=== PATIENT | female | born 1980 | race Caucasian/White ===

== ENCOUNTER 2017-05-05 22:32 | Emergency (ER) | payer OTHER ==
[~2017-05-05] VITALS: Ht 162.6 cm; Wt 73.8 kg
[2017-05-05 22:42] VITALS: TEMP 36.7; Ht 162.6 cm; Wt 73.8 kg
[2017-05-05] MEDS ORDERED: SODIUM CHLORIDE 0.9% 1000ML 1,000 ML IV STA ×2 (23:19)
[2017-05-05] MEDS ORDERED: ONDANSETRON INJ 2 MG/ML 2 ML VIAL IV STA (23:19)
[2017-05-05] MEDS ORDERED: MoRPHine SULFATE 4 MG/ML 1 ML CARP\\VIAL IV STA (23:19)
[2017-05-05] MEDS ORDERED: CETI10TA84 PO (23:34)
[2017-05-05 23:40] VITALS: O2SAT 98
[2017-05-06 00:01] LABS: URINE APPEARANCE CLOUDY (CLEAR); URINE BILIRUBIN NEG (NEG); URINE COLOR ORANGE; URINE NITRITE NEG (NEG); URINE SPECIFIC GRAVITY 1.038 (1.000-1.030); UROBILINOGEN NEG (NEG); ZZUR CULT IF INDIC CLEAN CATCH NO
[2017-05-06 00:03] LABS: BASO % 0.5 %; BASO ABS # 0.05 K/uL (0-0.2); COMPLETE YES; EOS % 5.6 %; HEMATOCRIT 36.8 % (37-47); IG% 0.1 %; LYMPH % 27.4 %; LYMPH ABS # 2.57 K/uL (1.2-3.4); MEAN CELL VOLUME 88.5 fL (80-100); MEAN CORPUSCULAR HEMOGLOBIN 28.8 pg (25-34); MEAN CORPUSCULAR HGB CONC 32.6 g/dl (32-36); MEAN PLATELET VOLUME 9.6 fL (7.4-10.4); MONO % 8.1 %; NEUT % 58.3 %; PLATELET COUNT 327 K/uL (130-400); RED BLOOD COUNT 4.16 M/uL (4.2-5.4); WHITE BLOOD COUNT 9.39 K/uL (4.8-10.8)
[2017-05-06 00:07] LABS: MANUAL MICROSCOPIC REQUIRED? NO; REVIEW REQ? NO
[2017-05-06 00:08] LABS: INR 0.9 (0.9-1.1); PARTIAL THROMBOPLASTIN RATIO 1.1; PROTHROMBIN TIME (PATIENT) 10.1 SECONDS (9.0-12.0)
[2017-05-06 00:27] LABS: BUN/CREATININE RATIO 10.6 (10-20); CALCIUM 8.7 mg/dl (8.5-10.1); CREATININE 1.2 mg/dl (0.60-1.20); POTASSIUM 4.1 mmol/L (3.5-5.1)
[2017-05-06 00:29] LABS: ALB/GLOB RATIO 1.1 (0.9-2)
[2017-05-06] MEDS ORDERED: ONDANSETRON HOME PACK 4MG OD TAB PO ONE (02:00)
[2017-05-06 02:01] VITALS: BP 109/74
[2017-05-06 02:06] VITALS: PULSE 69; O2SAT 98
--- NOTE | 2017-05-06 06:16 | EMERGENCY ROOM VISIT NOTE ---
History First contact with patient: 23:12 Chief Complaint: ED VAG BLEEDING Stated Complaint: MISCARRIAGE,PELVIC PAIN History of Present Illness The patient is a 36 year old female who presents to the Emergency Room with complaints of heavy vaginal bleeding and cramping for the past few days it is still getting worse was currently 10 weeks . Patient is in town visiting from [place]. She had an ultrasound last week that showed that she is 6 weeks with no heartbeat. Patient was informed that her dates might be off. Patient denies fever, chills, vomiting, diarrhea, back pain, urinary symptoms. This is her first . Blood type is O+. Review of Systems See HPI for pertinent positives & negatives. A total of 10 systems reviewed and were otherwise negative. Past Medical/Surgical History Seasonal allergies Social History Smoking Status: Never Smoker Smokeless Tobacco Use: No Alcohol Use: none Drug Use: none Marital Status: Housing Status: lives with family Current/Historical Medications Scheduled Cetirizine (Zyrtec), 10 MG PO DAILY Physical Exam Vital Signs Date Time Temp Pulse Resp B/P (MAP) Pulse Ox O2 Delivery O2 Flow Rate FiO2 05/06/17 02:06 69 16 98 05/06/17 02:01 109/74 05/06/17 01:31 98/54 05/06/17 01:20 68 20 98 05/06/17 01:01 112/81 05/06/17 00:50 79 17 98 05/06/17 00:45 131/70 05/06/17 00:02 84 24 98 05/06/17 00:01 126/77 05/05/17 23:47 126/71 05/05/17 23:45 87 05/05/17 23:40 98 Room Air 05/05/17 22:42 36.7 93 18 138/85 96 Room Air Pain Rating (0-10): 3.0 Physical Exam VITALS: Vitals are noted on the nurse's note and reviewed by myself. Vital signs stable. GENERAL: Pleasant female, in no acute distress, nondiaphoretic, well-developed well-nourished. SKIN: Capillary reflex less than 2 seconds. HEENT: Normocephalic. PERRLA. EOMI. Nares patent. Mucous membranes moist. Neck is supple without nuchal rigidity. HEART: Regular rate and rhythm without murmurs gallops or rubs. LUNGS: Clear to auscultation bilaterally without wheezes, rales or rhonchi. No retractions or accessory muscle use. ABDOMEN: Positive bowel sounds x 4. Normal tympanic percussion. Soft, nontender, without masses or organomegaly. Puckett sign negative. No guarding or rebound tenderness. No CVA tenderness exam: Normal external genitalia, minimal blood in the vault, os is closed. Observation Nurse present MUSCULOSKELETAL: No gross musculoskeletal defects. No pedal edema. NEURO: Patient was alert and oriented to person place and time. Normal sensation to light and sharp touch. No focal neurological deficits. Medical Decision & Procedures Laboratory Results 05/05/17 23:45 Red Blood Count 4.16, Mean Corpuscular Volume 88.5, Mean Corpuscular Hemoglobin 28.8, Mean Corpuscular Hemoglobin Concent 32.6, Mean Platelet Volume 9.6, Neutrophils (%) (Auto) 58.3, Lymphocytes (%) (Auto) 27.4, Monocytes (%) (Auto) 8.1, Eosinophils (%) (Auto) 5.6, Basophils (%) (Auto) 0.5, Neutrophils # (Auto) 5.47, Lymphocytes # (Auto) 2.57, Monocytes # (Auto) 0.76, Eosinophils # (Auto) 0.53, Basophils # (Auto) 0.05 05/05/17 23:45 Test 05/05/17 23:30 05/05/17 23:45 Urine Color ORANGE Urine Appearance CLOUDY (CLEAR) Urine pH 7.0 (4.5-7.5) Urine Specific [place] 1.038 (1.000-1.030) Urine Protein 1+ (NEG) Urine Glucose (UA) NEG (NEG) Urine Ketones TRACE (NEG) Urine Occult Blood 3+ (NEG) Urine Nitrite NEG (NEG) Urine Bilirubin NEG (NEG) Urine Urobilinogen NEG (NEG) Urine Leukocyte Esterase TRACE (NEG) Urine WBC (Auto) 1-5 /hpf (0-5) Urine RBC (Auto) >30 /hpf (0-4) Urine Hyaline Casts (Auto) 0 /lpf (0-5) Urine Epithelial Cells (Auto) 10-20 /lpf (0-5) Urine Bacteria (Auto) NEG (NEG) White Blood Count 9.39 K/uL (4.8-10.8) Red Blood Count 4.16 M/uL (4.2-5.4) Hemoglobin 12.0 g/dL (12.0-16.0) Hematocrit 36.8 % (37-47) Mean Corpuscular Volume 88.5 fL (80-100) Mean Corpuscular Hemoglobin 28.8 pg (25-34) Mean Corpuscular Hemoglobin Concent 32.6 g/dl (32-36) Platelet Count 327 K/uL (130-400) Mean Platelet Volume 9.6 fL (7.4-10.4) Neutrophils (%) (Auto) 58.3 % Lymphocytes (%) (Auto) 27.4 % Monocytes (%) (Auto) 8.1 % Eosinophils (%) (Auto) 5.6 % Basophils (%) (Auto) 0.5 % Neutrophils # (Auto) 5.47 K/uL (1.4-6.5) Lymphocytes # (Auto) 2.57 K/uL (1.2-3.4) Monocytes # (Auto) 0.76 K/uL (0.11-0.59) Eosinophils # (Auto) 0.53 K/uL (0-0.5) Basophils # (Auto) 0.05 K/uL (0-0.2) RDW Standard Deviation 43.8 fL (36.4-46.3) RDW Coefficient of Variation 13.4 % (11.5-14.5) Immature Granulocyte % (Auto) 0.1 % Immature Granulocyte # (Auto) 0.01 K/uL (0.00-0.02) Prothrombin Time 10.1 SECONDS (9.0-12.0) Prothromb Time International Ratio 0.9 (0.9-1.1) Activated Partial Thromboplast Time 28.5 SECONDS (21.0-31.0) Partial Thromboplastin Ratio 1.1 Anion Gap 6.0 mmol/L (3-11) Est Creatinine Clear Calc Drug Dose 62.6 ml/min Estimated GFR () 66.4 Estimated GFR (Non- 57.3 BUN/Creatinine Ratio 10.6 (10-20) Calcium Level 8.7 mg/dl (8.5-10.1) Total Bilirubin 0.2 mg/dl (0.2-1) Aspartate Amino Transf (AST/SGOT) 20 U/L (15-37) Alanine Aminotransferase (ALT/SGPT) 27 U/L (12-78) Alkaline Phosphatase 85 U/L (45-117) Total Protein 7.0 gm/dl (6.4-8.2) Albumin 3.6 gm/dl (3.4-5.0) Globulin 3.4 gm/dl (2.5-4.0) Albumin/Globulin Ratio 1.1 (0.9-2) Human Chorionic Gonadotropin, Quant 2779 mIU/mL Medications Administered Medications (Trade) Dose Ordered Sig/Deepak Route Start Time Stop Time Status Last Admin Dose Admin Sodium Chloride 1,000 ml @ 999 mls/hr Q1H1M STAT IV 05/05/17 23:19 05/06/17 00:20 DC 05/05/17 23:57 999 MLS/HR Sodium Chloride 1,000 ml @ 125 mls/hr Q8H STAT IV 05/05/17 23:19 05/06/17 03:08 DC 05/05/17 23:58 125 MLS/HR Morphine Sulfate (MoRPHine SULFATE INJ) 4 mg NOW STAT IV 05/05/17 23:19 05/05/17 23:22 DC 05/05/17 23:58 4 MG Ondansetron HCl (Zofran Inj) 4 mg NOW STAT IV 05/05/17 23:19 05/05/17 23:22 DC 05/05/17 23:57 4 MG Ondansetron HCl (ZOFRAN ODT 4MG Home Pack) 1 homepack UD ONCE PO 05/06/17 02:00 05/06/17 02:01 DC 05/06/17 02:19 1 HOMEPACK ED Course Prior records/ancillary studies reviewed. Triage Nursing notes reviewed. Additional history obtained from the family. The patient's history was concerning for vaginal bleeding and abdominal pain with known . Differential diagnosis: Etiologies such as miscarriage, incomplete miscarriage, threatened miscarriage, retained products of conception, septic , dysfunction uterine bleeding, bleeding dyscrasia, trauma, infection, as well as others were entertained. Physical examination: As above. Vitals signs revealed stable ER treatment provided: IV fluids, morphine, Zofran On reassessment the patient felt better. Diagnostic interpretation by me: The labs revealed the patient to the Rh O+. CBC, coagulation studies, and chemistries were unremarkable. . Urinalysis revealed no sign of infection. Quantitative hCG was 2700 Imaging studies: Ultrasound was reviewed with no IUP Consultation: A consultation was placed with the cigarette making machine catcher physician, Dr. Pope. The case was discussed and diagnostics were reviewed. Discharged with outpatient follow-up with her OB with a week for repeat Quant testing. This appears to be consistent with miscarriage. Patient was neurovascularly and neurologically intact. Patient had no IUP on ultrasound. Blood type was O+ . H&H is stable. She is advised to repeat her Quant level this week when she returns back to [place] and follow-up with her OB. She is advised to return to the ER immediately for heavy bleeding, fevers, weakness, worsening signs or symptoms or as needed. By the evaluation outlined above emergent etiologies such as bleeding dyscrasia, ectopic , trauma, as well as others were deemed relatively unlikely. The pt informed about the findings as listed above. All questions were answered and pleased with the treatment. Return instructions were outlined and the patient was discharged in stable condition. Referral: The patient was referred to her [facility] [employer] [facility] for follow-up in 2 to 3 days for a recheck of her current condition. Case reviewed with my attending Medical Decision As above Medication Reconcilliation Current Medication List: was personally reviewed by me Blood Pressure Screening Patient's blood pressure: Normal blood pressure Impression Primary Impression: Incomplete miscarriage Departure Information Dispostion Home / Self-Care Condition GOOD Forms WORK / SCHOOL INSTRUCTIONS, HOME CARE DOCUMENTATION FORM, IMPORTANT VISIT INFORMATION Patient Instructions Miscarriage - [facility] Additional Instructions Rest. Stay well hydrated. No strenuous activity or intercourse until cleared by [facility]. Zofran 4 tablet every 6 hours as needed for nausea and vomiting. Acetaminophen(Tylenol) may be used for fever or pain. Use 1000mg every six hours as needed. Avoid using more than 3000mg in a 24 hour period. Rest and drink plenty of fluids as tolerated. Continue current medications. Return to the ER immediately for worsening or persistent heavy vaginal bleeding , abdominal pain, vomiting, fevers, chest pains, difficulty breathing, worsening of your condition, or as needed. Follow up with your [facility] in 2-3 days for a recheck of your current condition.
--- NOTE | 2017-05-06 08:24 | DIAGNOSTIC IMAGING REPORT ---
<14 WKS SINGLE ULTRASOUND CLINICAL HISTORY: 10wks preg, vaginal bleed COMPARISON STUDY: None. FINDINGS: The uterus measures 8.7 x 5.8 x 6.6 cm. Heterogeneous and partially shadowing hypoechoic area within the posterior uterine fundus. This favors small fibroids. The largest measures 2.5 cm. The endometrium is difficult to define due to the fundal fibroids but appears to be slightly thickened measuring 2 cm. No intrauterine gestational sac is identified. A 2.3 cm right ovarian cyst. The left ovary was not visualized. No pelvic free fluid. IMPRESSION: 1. The endometrium at the fundus is suboptimally assessed due to the adjacent fundal fibroids but appears to be thickened. No intrauterine gestational sac identified. No adnexal masses. Therefore, in the setting of a positive test this could be due to an early intrauterine , nonvisualized ectopic , or recent spontaneous . Correlate with serial hCG and/or follow-up ultrasound. 2. A 2.3 cm right ovarian cyst. The left ovary was not visualized. Electronically signed by: Edison Wolf M.D. 05/06/2017 8:22 AM Dictated Date/Time: 05/06/2017 8:18 AM
== END 2017-05-06 02:20 | disposition home or self-care (01) ==
LOC: C.EDB 22:34
DX: O03.4 Incomplete spontaneous abortion without complication (principal)